=== PATIENT | female | born 1950 | race Caucasian/White ===

== ENCOUNTER 2021-08-10 12:11 | Inpatient (IN) | payer OTHER, MEDICARE ==
[2021-08-10] MEDS ORDERED: HEPARIN SODIUM 1,000 UN/ML (10ML VL) IV PRN (12:43)
[2021-08-10] MEDS: HEPARIN SOD,PORK IN 0.45% NACL 25,000 UNIT in 0.45% NACL 1 250ML.BAG IV SCH (13:05)
[2021-08-10] MEDS: DILTIAZEM 125 MG in SODIUM CHLORIDE 0.9% 100 ML IV SCH ×2 (13:07→21:03)
--- NOTE | 2021-08-10 13:08 | ED ---
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 fib RVR along with a pulmonary embolism in the right lung. She also did have a hypotensive episode hours she was treated and discharged in improved she was placed on IV Cardizem also IV heparin. She was transported here for further evaluation and treatment and higher level of care. She denied any fevers she had chills earlier in the week no overt cough or phlegm production. She did comment that there is was a spot found on her lung on the imaging done today. She states her last chemotherapy was 3 days ago to try to shrink the sarcoma. The plan was to have surgical removal if possible. Patient was noted to have hypokalemia and hypomagnesemia with elevated white blood cell count. No cough or phlegm production no dysuria no hematuria or modifying factors. MD Complaint: generalized weakness - Related Data Allergies Allergy/AdvReac Type Severity Reaction Status Date / Time No Known Allergies Allergy Verified 08/10/21 12:57 Review of Systems ROS Statement: Those systems with pertinent positive or pertinent negative responses have been documented in the HPI. ROS Other: All systems not noted in ROS Statement are negative. General Exam - General Exam Comments Initial Comments: Case was discussed with Dr. Tate from [facility]. Limitations: physical limitation Course Vital Signs 08/10/21 08/10/21 12:20 12:30 Temperature 98.0 F Pulse Rate 85 Pulse Rate [ 86 Bilateral Prone Radial] Respiratory 18 Rate Blood Pressure 104/62 O2 Sat by Pulse 96 Oximetry EKG Findings - EKG Results: EKG: interpreted by NINO, sinus rhythm (Sinus rhythm with PACs rate 87 GA interval 142 QRS 94 QT since QTC 398/478 minimal voltage criteria for LVH) Medical Decision Making - Medical Decision Making Patient will be admitted for evaluation inpatient. Disposition Clinical Impression: Pulmonary embolism, Rapid atrial fibrillation, Uterine sarcoma, Hypokalemia, Hypomagnesemia, Leukocytosis Disposition: ADMITTED IP TO THIS HOSP Condition: Fair Referrals: Nonstaff,Physician [Primary Care Provider] - 1-2 days
[2021-08-10] MEDS ORDERED: NALOXONE 0.4 MG/ML 1 ML VIAL IV PRN (13:29)
[2021-08-10] MEDS ORDERED: LORazepam 2 MG/ML INJ IV STA (13:35)
--- NOTE | 2021-08-10 15:18 | XR ---
EXAMINATION TYPE: XR chest 1V portable DATE OF EXAM: 08/10/2021 COMPARISON: 08/10/2021 INDICATION: Short of breath TECHNIQUE: Single frontal view of the chest is obtained. FINDINGS: The heart size is normal. The pulmonary vasculature is normal. The lungs are clear. Port is on the left with the tip in the distal superior vena cava right atrial junction. There is better inspiration on the current exam. IMPRESSION: 1. No acute pulmonary process.
--- NOTE | 2021-08-10 16:03 | P.CNPUL ---
History of Present Illness Consult date: 08/10/21 Requesting physician: Rogerio Case Reason for consult: dyspnea, pulmonary embolism, abnormal CXR/CT Chief complaint: Weakness, pulmonary embolism, new onset atrial fibrillation History of present illness: 71-year-old white female patient with history of uterine sarcoma who had chemotherapy 3 days ago, presented to [facility] in [place], [place], with complaints of weakness. She was found to be hypotensive, and in A. fib with RVR. CT chest was completed showng a pulmonary embolism in the right lung. She was started on heparin infusion, and Cardizem infusion for rate control. She denied any fever or chills earlier in the week, no complaints of cough or phlegm production. Patient was noted to have hypokalemia, and hypomagnesemia and elevated white blood cell count. No urinary complaints. Currently afebrile. She is on room air with a pulse ox of 94-96%. Currently she is in sinus mechanism with PACs. Cardiology consultation has been requested. We were consulted for a newly diagnosed pulmonary embolism Review of Systems All systems: negative Constitutional: Reports weakness, Denies chills, Denies fever Eyes: denies blurred vision, denies pain Ears, nose, mouth and throat: Denies headache, Denies sore throat Cardiovascular: Denies chest pain, Denies shortness of breath Respiratory: Denies cough Gastrointestinal: Denies abdominal pain, Denies diarrhea, Denies nausea, Denies vomiting Genitourinary: Denies dysuria, Denies hematuria Musculoskeletal: Denies myalgias Integumentary: Denies pruritus, Denies rash Neurological: Denies numbness, Denies weakness Psychiatric: Denies anxiety, Denies depression Endocrine: Denies fatigue, Denies weight change Medications and Allergies Home Medications Medication Instructions Recorded Confirmed Type Atenolol/Chlorthalidone 1 tab PO DAILY 08/10/21 08/10/21 History [Atenolol/Chlorthalidone 50-25] Potassium Chloride ER [K-Dur 20] 20 meq PO DAILY 08/10/21 08/10/21 History Prochlorperazine [Compazine] 10 mg PO Q6H PRN 08/10/21 08/10/21 History buPROPion [Wellbutrin] 75 mg PO HS 08/10/21 08/10/21 History ondansetron HCL [Zofran] 8 mg PO Q8H PRN 08/10/21 08/10/21 History Allergies Allergy/AdvReac Type Severity Reaction Status Date / Time No Known Allergies Allergy Verified 08/10/21 14:14 Physical Exam Vitals: Vital Signs Temp Pulse Pulse Resp BP Pulse Ox 08/10/21 12:30 86 08/10/21 12:20 98.0 F 85 18 104/62 96 Intake and Output 08/09/21 08/10/21 08/10/21 22:59 06:59 14:59 Other: Weight 97.976 kg GENERAL EXAM: Alert, very pleasant, 71-year-old female on room air with a pulse ox of 97% comfortable in no apparent distress. HEAD: Normocephalic/atraumatic. EYES: Normal reaction of pupils, equal size. Conjunctiva pink, sclera white. NOSE: Clear with pink turbinates. THROAT: No erythema or exudates. NECK: No masses, no JVD, no thyroid enlargement, no adenopathy. CHEST: No chest wall deformity. Symmetrical expansion. LUNGS: Equal air entry with no crackles, wheeze, rhonchi or dullness. CVS: Regular rate and rhythm, normal S1 and S2, no gallops, no murmurs, no rubs ABDOMEN: Soft, distended but nontender No hepatosplenomegaly, normal bowel sounds, no guarding or rigidity. EXTREMITIES: No clubbing, no edema, no cyanosis, 2+ pulses and upper and lower extremities. MUSCULOSKELETAL: Muscle strength and tone normal. SPINE: No scoliosis or deformity SKIN: No rashes CENTRAL NERVOUS SYSTEM: Alert and oriented -3. No focal deficits, tone is normal in all 4 extremities. PSYCHIATRIC: Alert and oriented -3. Appropriate affect. Intact judgment and insight. Results - Diagnostic Findings Chest x-ray: report reviewed, image reviewed CT scan - chest: report reviewed, image reviewed Additional studies: EKG reviewed Assessment and Plan Plan: Assessment: #1. New onset A. fib with RVR, likely related to acute pulmonary embolism. Currently in sinus mechanism. Remains on Cardizem and heparin infusions #2. Hypotension likely related to A. fib with RVR, currently improved #3. Acute small peripheral right lower lobe pulmonary embolism without findings for right heart strain, patient is currently on heparin infusion #4. 7 mm nodule in the posterior right lower lobe, possibly metastatic. Will need outpatient follow-up #5. Uterine cancer, on chemotherapy, and patient is awaiting surgical removal once the tumor shrinks. Patient was diagnosed in July 2020 #6. No prior history of DVT or PE #7. Leukocytosis, rule out possibility of infection #8. Hypokalemia, and hypomagnesemia being corrected per protocol #9. Osteoarthritis #10. Obesity with BMI of 39.5 kg/m #11. Hypertension #12. Anxiety #13. Never smoker Plan: Continue heparin infusion CTA chest from outside hospital has been reviewed, showing small peripheral right lower lobe pulmonary embolism Hemodynamically patient is stable, back in sinus mechanism, blood pressure has improved We'll obtain echocardiogram Cardiology consultation is pending We'll switch the patient over to oral anticoagulation tomorrow We'll send the procalcitonin level We'll obtain follow-up blood work tomorrow Send blood cultures We'll continue to follow I performed a history & physical examination of the patient and discussed their management with my nurse practitioner, Charlotte Paredes. I reviewed the nurse practitioner's note and agree with the documented findings and plan of care. Lung sounds are positive for diminished breath sounds. The findings and the impression was discussed with the patient. I attest to the documentation by the nurse practitioner. Time with Patient: Greater than 30
[2021-08-10] MEDS ORDERED: ONDANSETRON 4 MG TAB PO PRN (16:04)
[2021-08-10 16:08] LABS: Anisocytosis Slight; HGB 7.8 gm/dL (11.4-16.0); MCH 30.3 pg (25.0-35.0); MCHC 32.8 g/dL (31.0-37.0); MCV 92.5 fL (80.0-100.0); Mean Platelet Volume 7.8; Platelet Count 213 k/uL (150-450); RBC 2.59 m/uL (3.80-5.40); RDW 18.1 % (11.5-15.5); WBC 28.2 k/uL (3.8-10.6)
[2021-08-10 16:29] LABS: Eosinophils # (M) 0.28 k/uL (0-0.7); Lymphocytes # (M) 0.85 k/uL (1.0-4.8); Monocytes # (M) 0.28 k/uL (0-1.0); Neutrophils # (M) 26.79 k/uL (1.3-7.7); Neutrophils % (M) 95 %; Nucleated Red Blood Cells 0 /100 WBC (0-0); Ovalocytes Present; Total Cells Counted 100
[2021-08-10 16:42] LABS: ALT 21 U/L (4-34); AST 37 U/L (14-36); African American GFR (CKD) >90 (>60 ml/min/1.73 sqM); Albumin 3.1 g/dL (3.5-5.0); Alkaline Phosphatase 82 U/L (38-126); Anion Gap 7 mmol/L; Blood Urea Nitrogen 15 mg/dL (7-17); Carbon Dioxide 30 mmol/L (22-30); Chloride 96 mmol/L (98-107); Glucose 115 mg/dL (74-99); Non-African American GFR(CKD) >90 (>60 ml/min/1.73 sqM); Sodium 133 mmol/L (137-145); Total Bilirubin 1.5 mg/dL (0.2-1.3); Total Protein 5.6 g/dL (6.3-8.2)
[2021-08-10] MEDS: POTASSIUM CHLORIDE ER 20 MEQ TAB.ER PO SCH ×3 (17:22→20:43)
[2021-08-10] MEDS ORDERED: Potassium Replacement Protocol 1 EACH MISC MISCELLANE PRN (18:06)
[2021-08-10] MEDS ORDERED: ACETAMINOPHEN TAB 325 MG TAB PO PRN (18:06)
[2021-08-10] MEDS ORDERED: Magnesium Replacement Protocol 1 EACH MISC MISCELLANE PRN (18:06)
[2021-08-10 18:38] LABS: Appearance,Urine Cloudy (Clear); Bilirubin,Urine Negative (Negative); Blood,Urine Negative (Negative); Color,Urine Yellow; Glucose,Urine (UA) Negative (Negative); Ketones,Urine Negative (Negative); Leukocyte Esterase,Urine Trace (Negative); Mucus,Urine Rare /hpf; Nitrite,Urine Negative (Negative); Protein,Urine Trace (Negative); RBC,Urine 2 /hpf (0-5); Squamous Epithelial Cell,Urine 2 /hpf (0-4); WBC,Urine 3 /hpf (0-5)
[2021-08-10 18:41] LABS: Specific Gravity,Urine >1.050 (1.001-1.035)
[2021-08-10] MEDS ORDERED: PROCHLORPERAZINE 10 MG TAB PO PRN (18:58)
[2021-08-10] MEDS ORDERED: HYDROmorphone 0.5 MG/0.5 ML SYRINGE IVP PRN (19:00)
--- NOTE | 2021-08-10 20:06 | HP ---
HISTORY AND PHYSICAL CHIEF COMPLAINTS: Shortness of breath and pulmonary embolism and new atrial fibrillation. HISTORY OF PRESENT ILLNESS: This 71-year-old woman with a past medical history of multiple medical problems, including hypertension, history of uterine sarcoma, history of hysterectomy, history of DJD, being followed by a family physician in the [place] area, was not feeling well. The patient apparently was receiving chemotherapy and followup from [facility]. The patient was evaluated in [place], [place], and the patient was found to have atrial fibrillation with a rapid ventricular rate and pulmonary embolus on the right lung. Patient was transferred to [facility] [place] and admitted for further evaluation and treatment. Patient was started on IV heparin. Patient was also given Cardizem drip, which resulted in reversion of the cardiac rhythm into normal sinus rhythm. Patient is being closely monitored at this time. There is no history of any fever, rigor or chills. Dr. Huddleston's evaluation is progressing. A chest x-ray which was done in the ER showed some atelectasis and hyperinflation also. The lab showed white count elevated at 28.2, hemoglobin 7.8, sodium 133, potassium 3. There is no history of any fever, rigors or chills. PAST MEDICAL HISTORY: History of hypertension, history of uterine sarcoma. MEDICATIONS: Zofran, Wellbutrin, Compazine, K-Dur, atenolol, chlorthalidone. Doses are reviewed. ALLERGIES: NONE. FAMILY HISTORY: History of colon cancer. SOCIAL HISTORY: No history of smoking. No history of alcohol intake. REVIEW OF SYSTEMS: ENT: No diminished hearing. No diminished vision. CARDIOVASCULAR SYSTEM: No angina, palpitations. RESPIRATORY SYSTEM: As mentioned earlier. GI: As mentioned earlier. : As mentioned earlier. NERVOUS SYSTEM: No numbness. Generalized weakness. ALLERGY/IMMUNOLOGY: No asthma or hay fever. MUSCULOSKELETAL: As mentioned earlier. HEMATOLOGY/ONCOLOGY: No history of anemia. ENDOCRINE: No history of diabetes, hypothyroidism. CONSTITUTIONAL: As mentioned earlier. DERMATOLOGY: Negative. RHEUMATOLOGY: Negative. PSYCHIATRY: As mentioned earlier. PHYSICAL EXAMINATION: Patient is alert, oriented x3. Pulse is 79, blood pressure 119/79, respiration 18, temperature 98 degrees, pulse ox 94% on room air, HEENT: Conjunctivae normal. Oral mucosa moist. NECK: No jugular venous distention. No carotid bruit. No lymph node enlargement. CARDIOVASCULAR: S1, S2 irregular. No S3. No S4 RESPIRATION: Breath sounds diminished at the bases. Bilateral scattered rhonchi and crackles. ABDOMEN: Soft. Mild diffuse distention present. Umbilical hernia also present. Nontender. No ascites. Bowel sounds diminished. LEGS: No edema. No swelling. NERVOUS SYSTEM: Higher functions as mentioned earlier. Moves all 4 limbs. No focal motor or sensory deficit. LYMPHATICS: No lymph node palpable in neck, axillae or groin. SKIN: No ulcer, rash, bleeding. JOINTS: No active deforming arthropathy. LABS: WBC 28.2, hemoglobin 7.8, sodium 133, potassium 3. ASSESSMENT: 1. Shortness of breath, multifactorial, with acute pulmonary embolism, right-sided, mostly peripheral. 2. Atrial fibrillation with a fast ventricular rate. 3. Rule out pneumonia or atelectasis. 4. Increased white count. 5. Anemia, normocytic. 6. Hyponatremia. 7. Hypokalemia. 8. Elevated bilirubin. 9. Mild hypocalcemia. 10.Hypertension. 11.Uterine sarcoma in July 2020. 12.History of hysterectomy. 13.History of port placement. 14.History of bilateral knee replacement. 15.History of anxiety. RECOMMENDATIONS AND DISCUSSION: In this 71-year-old woman who presented with multiple complex medical issues, at this time we will monitor the patient closely, continue the current medications, continue with symptomatic treatment. I would also recommend optimizing the bronchodilator treatment. Continue with IV heparin and also Cardizem drip. Follow up with Cardiology and Pulmonology. The patient is immunosuppressed. I would recommend a serum procalcitonin. If it is elevated, I would also recommend a course of antibiotics as well. Obtain blood cultures. Repeat labs. Prognosis is guarded because of multiple complex medical issues. Further recommendations to follow. See orders for further details. MMODL / IJN: [id number] /
[2021-08-10] MEDS: buPROPion 75 MG TAB PO SCH (20:43)
[2021-08-10] MEDS: PANTOPRAZOLE 40 MG/10 ML VIAL IVP SCH (21:04)
[2021-08-11] MEDS: HYDROcodone/APAP 5-325MG 1 EACH TAB PO PRN ×2 (00:23→20:21)
[2021-08-11] MEDS: DILTIAZEM 125 MG in SODIUM CHLORIDE 0.9% 100 ML IV SCH (06:39)
[2021-08-11] MEDS: HEPARIN SOD,PORK IN 0.45% NACL 25,000 UNIT in 0.45% NACL 1 250ML.BAG IV SCH (06:44)
[2021-08-11] MEDS: POTASSIUM CHLORIDE ER 20 MEQ TAB.ER PO SCH (07:52)
[2021-08-11] MEDS: PANTOPRAZOLE 40 MG/10 ML VIAL IVP SCH ×2 (07:52→20:22)
[2021-08-11] MEDS: atenoloL 50 MG TAB PO SCH (07:52)
[2021-08-11] MEDS: CHLORTHALIDONE 25 MG TAB PO SCH (07:53)
[2021-08-11 09:22] LABS: Anisocytosis Slight; Basophils % (A) 0 %; Eosinophils # (A) 0.1 k/uL (0-0.7); Eosinophils % (A) 0 %; HCT 22.5 % (34.0-46.0); HGB 7.4 gm/dL (11.4-16.0); Lymphocytes # (A) 0.3 k/uL (1.0-4.8); Lymphocytes % (A) 2 %; MCH 30.7 pg (25.0-35.0); MCV 92.9 fL (80.0-100.0); Macrocytosis Slight; Mean Platelet Volume 7.9; Monocytes # (A) 0.4 k/uL (0-1.0); Monocytes % (A) 3 %; Neutrophils # (A) 11.8 k/uL (1.3-7.7); Neutrophils % (A) 94 %; Platelet Count 168 k/uL (150-450); RBC 2.42 m/uL (3.80-5.40); RDW 18.4 % (11.5-15.5); WBC 12.6 k/uL (3.8-10.6)
[2021-08-11 09:46] LABS: Prothrombin Time 10.5 sec (9.0-12.0)
[2021-08-11 10:03] LABS: ALT 20 U/L (4-34); AST 34 U/L (14-36); African American GFR (CKD) >90 (>60 ml/min/1.73 sqM); Albumin 2.9 g/dL (3.5-5.0); Alkaline Phosphatase 106 U/L (38-126); Anion Gap 5 mmol/L; Blood Urea Nitrogen 14 mg/dL (7-17); Calcium 7.8 mg/dL (8.4-10.2); Carbon Dioxide 29 mmol/L (22-30); Chloride 97 mmol/L (98-107); Glucose 129 mg/dL (74-99); Magnesium 1.6 mg/dL (1.6-2.3); Non-African American GFR(CKD) >90 (>60 ml/min/1.73 sqM); Potassium 3.4 mmol/L (3.5-5.1); Sodium 131 mmol/L (137-145); Total Bilirubin 1.2 mg/dL (0.2-1.3); Total Protein 5.5 g/dL (6.3-8.2)
[2021-08-11 10:24] LABS: C Reactive Protein 14.9 mg/dL (<1.0)
--- NOTE | 2021-08-11 11:24 | P.PN ---
Subjective Progress Note Date: 08/11/21 Principal diagnosis: Pulmonary embolism 71-year-old white female patient with history of uterine sarcoma who had chemotherapy 3 days ago, presented to [facility] in [place], [place], with complaints of weakness. She was found to be hypotensive, and in A. fib with RVR. CT chest was completed showng a pulmonary embolism in the right lung. She was started on heparin infusion, and Cardizem infusion for rate control. She denied any fever or chills earlier in the week, no complaints of cough or phlegm production. Patient was noted to have hypokalemia, and hypomagnesemia and elevated white blood cell count. No urinary complaints. Currently afebrile. She is on room air with a pulse ox of 94-96%. Currently she is in sinus mechanism with PACs. Cardiology consultation has been requested. We were consulted for a newly diagnosed pulmonary embolism On 08/11/2021 patient seen in follow-up on selective care unit, she is currently up in the recliner, breathing comfortably, she is on room air, with a pulse ox of 95%, vitall signs have been stable, she is back in sinus mechanism, the rate is controlled, she remains a Cardizem infusion at 15 mg per hour, she is on heparin infusion, and 0.9 normal saline at a rate of 20 ML per hour, no complaints of chest pain, 7 stable overnight, no fever or chills, pro-calcitonin level was negative at 0.20, urinalysis did not show evidence of infection, 2 sets of cardiac troponins were less than 0.012, patient continues on Rocephin. White blood cell count is improved and is down to 12.6, hemoglobin is 7.4. Sodium is 131, potassium is 3.4, chloride is 97, B1 is 14 creatinine 0.46. No nausea or vomiting, no abdominal pain. Altered mentation, no fever or chills, no cough production. Objective - Vital Signs Vital signs: Vital Signs Temp 97.4 F L 08/11/21 07:47 Pulse 101 H 08/11/21 08:00 Resp 18 08/11/21 08:00 BP 107/63 08/11/21 07:47 Pulse Ox 95 08/11/21 07:47 Intake & Output 08/10/21 08/11/21 08/11/21 18:59 06:59 18:59 Intake Total 25 494 Output Total 400 Balance -375 494 Weight 97.976 kg 99.7 kg Intake: Intake, IV Titration 494 Amount Diltiazem 125 mg In 244 Sodium Chloride 0.9% 100 ml @ 15 MG/HR 15 mls/hr IV .[id number] MICHAEL Rx#: [id number] Heparin Sod,Pork in 0.45% 250 NaCl 25,000 unit In 0.45 % NaCl 1 250ml.bag @ 18 UNITS/KG/HR 17.636 mls/hr IV .[id number] MICHAEL Rx#: [id number] Oral 25 Output: Urine 400 - Exam GENERAL EXAM: Alert, very pleasant, 71-year-old female on room air with a pulse ox of 97% comfortable in no apparent distress. HEAD: Normocephalic/atraumatic. EYES: Normal reaction of pupils, equal size. Conjunctiva pink, sclera white. NOSE: Clear with pink turbinates. THROAT: No erythema or exudates. NECK: No masses, no JVD, no thyroid enlargement, no adenopathy. CHEST: No chest wall deformity. Symmetrical expansion. LUNGS: Equal air entry with no crackles, wheeze, rhonchi or dullness. CVS: Regular rate and rhythm, normal S1 and S2, no gallops, no murmurs, no rubs ABDOMEN: Soft, distended but nontender No hepatosplenomegaly, normal bowel sounds, no guarding or rigidity. EXTREMITIES: No clubbing, no edema, no cyanosis, 2+ pulses and upper and lower extremities. MUSCULOSKELETAL: Muscle strength and tone normal. SPINE: No scoliosis or deformity SKIN: No rashes CENTRAL NERVOUS SYSTEM: Alert and oriented -3. No focal deficits, tone is normal in all 4 extremities. PSYCHIATRIC: Alert and oriented -3. Appropriate affect. Intact judgment and insight. - Labs CBC & Chem 7: 08/11/21 08:54 08/11/21 08:54 Labs: Abnormal Lab Results - Last 24 Hours (Table) 08/10/21 08/10/21 08/10/21 Range/Units 14:54 14:54 15:43 WBC 28.2 H (3.8-10.6) k/uL RBC 2.59 L (3.80-5.40) m/uL Hgb 7.8 L (11.4-16.0) gm/dL Hct 24.0 L (34.0-46.0) % RDW 18.1 H (11.5-15.5) % Neutrophils # (1.3-7.7) k/uL Neutrophils # (Manual) 26.79 H (1.3-7.7) k/uL Lymphocytes # (1.0-4.8) k/uL Lymphocytes # (Manual) 0.85 L (1.0-4.8) k/uL APTT (22.0-30.0) sec D-Dimer (<0.60) mg/L FEU Sodium 133 L (137-145) mmol/L Potassium 3.0 L (3.5-5.1) mmol/L Chloride 96 L (98-107) mmol/L Creatinine 0.51 L (0.52-1.04) mg/dL Glucose 115 H (74-99) mg/dL Calcium 8.0 L (8.4-10.2) mg/dL Total Bilirubin 1.5 H (0.2-1.3) mg/dL AST 37 H (14-36) U/L C-Reactive Protein (<1.0) mg/dL Total Protein 5.6 L (6.3-8.2) g/dL Albumin 3.1 L (3.5-5.0) g/dL Procalcitonin 0.20 H (0.02-0.09) ng/mL Urine Appearance (Clear) Ur Specific [place] (1.001-1.035) Urine Protein (Negative) Ur Leukocyte Esterase (Negative) Urine Mucus (None) /hpf 08/10/21 08/10/21 08/11/21 Range/Units 18:20 19:54 08:54 WBC (3.8-10.6) k/uL RBC (3.80-5.40) m/uL Hgb (11.4-16.0) gm/dL Hct (34.0-46.0) % RDW (11.5-15.5) % Neutrophils # (1.3-7.7) k/uL Neutrophils # (Manual) (1.3-7.7) k/uL Lymphocytes # (1.0-4.8) k/uL Lymphocytes # (Manual) (1.0-4.8) k/uL APTT 50.0 H (22.0-30.0) sec D-Dimer (<0.60) mg/L FEU Sodium 131 L (137-145) mmol/L Potassium 3.4 L (3.5-5.1) mmol/L Chloride 97 L (98-107) mmol/L Creatinine 0.46 L (0.52-1.04) mg/dL Glucose 129 H (74-99) mg/dL Calcium 7.8 L (8.4-10.2) mg/dL Total Bilirubin (0.2-1.3) mg/dL AST (14-36) U/L C-Reactive Protein 14.9 H (<1.0) mg/dL Total Protein 5.5 L (6.3-8.2) g/dL Albumin 2.9 L (3.5-5.0) g/dL Procalcitonin (0.02-0.09) ng/mL Urine Appearance Cloudy H (Clear) Ur Specific [place] >1.050 H (1.001-1.035) Urine Protein Trace H (Negative) Ur Leukocyte Esterase Trace H (Negative) Urine Mucus Rare H (None) /hpf 08/11/21 08/11/21 Range/Units 08:54 08:54 WBC 12.6 H (3.8-10.6) k/uL RBC 2.42 L (3.80-5.40) m/uL Hgb 7.4 L (11.4-16.0) gm/dL Hct 22.5 L (34.0-46.0) % RDW 18.4 H (11.5-15.5) % Neutrophils # 11.8 H (1.3-7.7) k/uL Neutrophils # (Manual) (1.3-7.7) k/uL Lymphocytes # 0.3 L (1.0-4.8) k/uL Lymphocytes # (Manual) (1.0-4.8) k/uL APTT (22.0-30.0) sec D-Dimer 1.63 H (<0.60) mg/L FEU Sodium (137-145) mmol/L Potassium (3.5-5.1) mmol/L Chloride (98-107) mmol/L Creatinine (0.52-1.04) mg/dL Glucose (74-99) mg/dL Calcium (8.4-10.2) mg/dL Total Bilirubin (0.2-1.3) mg/dL AST (14-36) U/L C-Reactive Protein (<1.0) mg/dL Total Protein (6.3-8.2) g/dL Albumin (3.5-5.0) g/dL Procalcitonin (0.02-0.09) ng/mL Urine Appearance (Clear) Ur Specific [place] (1.001-1.035) Urine Protein (Negative) Ur Leukocyte Esterase (Negative) Urine Mucus (None) /hpf Assessment and Plan Plan: Assessment: #1. New onset A. fib with RVR, likely related to acute pulmonary embolism. Currently in sinus mechanism. Remains on Cardizem and heparin infusions #2. Hypotension likely related to A. fib with RVR, currently improved #3. Acute small peripheral right lower lobe pulmonary embolism without findings for right heart strain, patient is currently on heparin infusion #4. 7 mm nodule in the posterior right lower lobe, possibly metastatic. Will need outpatient follow-up #5. Uterine cancer, on chemotherapy, and patient is awaiting surgical removal once the tumor shrinks. Patient was diagnosed in July 2020 #6. No prior history of DVT or PE #7. Leukocytosis, rule out possibility of infection #8. Hypokalemia, and hypomagnesemia being corrected per protocol #9. Osteoarthritis #10. Obesity with BMI of 39.5 kg/m #11. Hypertension #12. Anxiety #13. Never smoker Plan: Discontinue heparin infusion We'll start Eliquis 10 mg twice daily Hemodynamically stable, back in sinus mechanism, rate is controlled Today's blood work has been reviewed, leukocytosis is improving, pro-calcitonin is essentially negative No fever or chills, vital signs have been stable If continues to be stable, and cleared by cardiology she maybe considered for discharge home in the next 24 hours. We'll continue to follow I performed a history & physical examination of the patient and discussed their management with my nurse practitioner, Charlotte Paredes. I reviewed the nurse practitioner's note and agree with the documented findings and plan of care. Lung sounds are positive for diminished breath sounds. The findings and the impression was discussed with the patient. I attest to the documentation by the nurse practitioner. Time with Patient: Less than 30
[2021-08-11] MEDS ORDERED: APIXABAN 5 MG TAB PO ONE ×2 (13:00→13:04)
[2021-08-11 13:16] LABS: Erythrocyte Sedimentation Rate 68 mm/hr (0-20)
--- NOTE | 2021-08-11 13:17 | P.CRDCN ---
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 She received chemotherapy on Friday and then was told she had severe anemia requiring transfusion on Friday. Unfortunately over the last 2-3 days she has been not icing feeling generalized fatigue, dyspnea on exertion and therefore presented to [facility]. She was diagnosed with a new pulmonary embolism as well as new onset atrial fibrillation. She cannot feel her heart racing and was placed on a Cardizem drip and then converted to normal sinus rhythm. She denies any hematochezia or melena and her anemia appears related to chemotherapy. She was found to have increased white blood cell count and unclear if she was given any GSF after chemotherapy. She believes it has been a few years since any echocardiogram was performed. She does have new onset of lower extremity edema with 2+ pitting edema as well as orthopnea which is new or the past 1-2 weeks. She is unsure what chemotherapy she is getting. EKG on presentation shows normal sinus rhythm, left axis deviation, mild nonspecific ST depressions in the lateral leads. Upon further review of initial EKG from [facility] it appears she had SVT with regular rhythm at 174 bpm and occasional R PAC. The remainder of telemetry and continue to show a regular SVT with heart rates 170- 180 with occasional PACs. No consistent atrial fibrillation or irregular rhythms noted. REVIEW OF SYSTEMS At the time of my exam: CONSTITUTIONAL: Denies fever or chills. CARDIOVASCULAR: Denies chest pain, +shortness of breath, +orthopnea, no PND or palpitations. RESPIRATORY: Denies cough. GASTROINTESTINAL: Denies abdominal pain, diarrhea, constipation, nausea or vomiting. MUSCULOSKELETAL: Denies myalgias. NEUROLOGIC: Denies numbness, tingling or weakness. ENDOCRINE: Denies fatigue, weight change, polydipsia or polyurina. GENITOURINARY: Denies burning, hematuria or urgency with micturation. HEMATOLOGIC: Denies history of anemia or bleeding. PHYSICAL EXAMINATION Vital signs reviewed. CONSTITUTIONAL: No apparent distress, obese, chronically ill appearing HEENT: Head is normocephalic. Pupils are equal, round. Sclerae anicteric. Mucous membranes of the mouth are moist. No JVD. No carotid bruit. CHEST EXAMINATION: Lungs are clear to auscultation. No chest wall tenderness is noted on palpation or with deep breathing. HEART EXAMINATION: Regular rate and rhythm. S1, S2 heard. No murmurs, gallops or rub. ABDOMEN: Soft, nontender. Positive bowel sounds. EXTREMITIES: 2+ peripheral pulses, 2+ lower extremity edema and no calf tenderness. NEUROLOGIC EXAMINATION: Patient is awake, alert and oriented x3. ASSESSMENT 1. Acute on chronic heart failure, unclear if systolic or diastolic 2. SVT on presentation, reviewed EKG and telemetry from [facility]. No obvious atrial fibrillation noted. Rhythms appear regular and most consistent with SVT with heart rates of 170 to 180. 3. Anemia status post recent blood transfusion likely related to chemotherapy 4. Leukocytosis likely related to GSF given after chemo 5. Pulmonary embolism by CAT scan 6. Uterine cancer undergoing chemotherapy, plans for future resection 7. Hypertension PLAN Patient's main presentation was of fatigue and dyspnea. Likely some component of anemia however also appears to be overloaded with 2+ lower extremity edema and mild crackles with orthopnea. We will check a proBNP as well as echocardiogram. Start Lasix and monitor ins and outs, kidney function and clinical response. EKG and telemetry reviewed with only SVT noted which was regular and occasional PACs, no clear evidence of atrial fibrillation. Would continue anticoagulation for DVT however monitor for any evidence of A. fib. Continue with atenolol at this time and may consider increasing if further episodes of SVT however primary care physician just recently decreased to half pill a week and a half ago secondary to borderline hypotension. 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 History of Any Multi-Drug Resistant Organisms: None Reported Past Surgical History: Hysterectomy, Orthopedic Surgery Additional Past Surgical History / Comment(s): August 2020 complete hysterectomy & port placement, 2015 bilat knee replacement Past Anesthesia/Blood Transfusion Reactions: No Reported Reaction Smoking Status: Never smoker - Past Family History Mother History Unknown: Yes Family Medical History: Cancer Additional Family Medical History / Comment(s): Colon CA Sister(s) History Unknown: Yes Family Medical History: Cancer Additional Family Medical History / Comment(s): Older sister had breast CA Medications and Allergies Home Medications Medication Instructions Recorded Confirmed Type Atenolol/Chlorthalidone 1 tab PO DAILY 08/10/21 08/10/21 History [Atenolol/Chlorthalidone 50-25] Potassium Chloride ER [K-Dur 20] 20 meq PO DAILY 08/10/21 08/10/21 History Prochlorperazine [Compazine] 10 mg PO Q6H PRN 08/10/21 08/10/21 History buPROPion [Wellbutrin] 75 mg PO HS 08/10/21 08/10/21 History ondansetron HCL [Zofran] 8 mg PO Q8H PRN 08/10/21 08/10/21 History Allergies Allergy/AdvReac Type Severity Reaction Status Date / Time No Known Allergies Allergy Verified 08/10/21 14:14 Physical Exam Vitals: Vital Signs Temp Pulse Pulse Resp BP BP Pulse Ox 08/11/21 11:24 97.5 F L 76 18 103/64 96 08/11/21 08:00 101 H 18 08/11/21 07:47 97.4 F L 101 H 18 107/63 95 08/11/21 03:48 98 F 85 18 99/52 95 08/10/21 23:27 99 F 90 20 111/70 94 L 08/10/21 20:00 99.2 F 92 18 111/67 93 L 08/10/21 17:21 98 18 118/72 95 08/10/21 15:30 98.5 F 90 18 123/73 97 08/10/21 14:00 79 18 119/79 94 L Intake and Output 08/10/21 08/11/21 08/11/21 22:59 06:59 14:59 Intake Total 144 375 Output Total 400 Balance -256 375 Intake: Intake, IV Titration 119 375 Amount Diltiazem 125 mg In 119 125 Sodium Chloride 0.9% 100 ml @ 15 MG/HR 15 mls/hr IV .Q8H20M [facility] Rx#: [id number] Heparin Sod,Pork in 0.45% 250 NaCl 25,000 unit In 0.45 % NaCl 1 250ml.bag @ 18 UNITS/KG/HR 17.636 mls/hr IV .[id number] [facility] Rx#: [id number] Oral 25 Output: Urine 400 Other: Weight 97.976 kg 99.7 kg Results 09/18/21 08:54 08/11/21 08:54 Cardiac Enzymes 08/10/21 08/10/21 08/10/21 Range/Units 14:54 15:43 19:54 AST 37 H (14-36) U/L Troponin I <0.012 <0.012 (0.000-0.034) ng/mL 08/11/21 Range/Units 08:54 AST 34 (14-36) U/L Troponin I (0.000-0.034) ng/mL Coagulation 08/10/21 08/11/21 Range/Units 19:54 08:54 PT 10.5 (9.0-12.0) sec APTT 50.0 H (22.0-30.0) sec CBC 08/10/21 08/11/21 Range/Units 14:54 08:54 WBC 28.2 H 12.6 H (3.8-10.6) k/uL RBC 2.59 L 2.42 L (3.80-5.40) m/uL Hgb 7.8 L 7.4 L (11.4-16.0) gm/dL Hct 24.0 L 22.5 L (34.0-46.0) % Plt Count 213 168 (150-450) k/uL Comprehensive Metabolic Panel 08/10/21 08/11/21 Range/Units 15:43 08:54 Sodium 133 L 131 L (137-145) mmol/L Potassium 3.0 L 3.4 L (3.5-5.1) mmol/L Chloride 96 L 97 L (98-107) mmol/L Carbon Dioxide 30 29 (22-30) mmol/L BUN 15 14 (7-17) mg/dL Creatinine 0.51 L 0.46 L (0.52-1.04) mg/dL Glucose 115 H 129 H (74-99) mg/dL Calcium 8.0 L 7.8 L (8.4-10.2) mg/dL AST 37 H 34 (14-36) U/L ALT 21 20 (4-34) U/L Alkaline Phosphatase 82 106 (38-126) U/L Total Protein 5.6 L 5.5 L (6.3-8.2) g/dL Albumin 3.1 L 2.9 L (3.5-5.0) g/dL Current Medications Generic Name Dose Route Start Last Admin Trade Name Freq PRN Reason Stop Dose Admin Acetaminophen 650 mg 08/10/21 18:06 08/10/21 18:35 Acetaminophen Tab 325 Mg Tab PO 650 mg Q6HR PRN Administration Fever and/ or Pain Hydrocodone Bitart/Acetaminophen 1 each 08/10/21 19:00 08/11/21 00:23 Hydrocodone/Apap 5-325mg 1 Each Tab PO 1 each Q6HR PRN Administration Pain Apixaban 10 mg 08/11/21 21:00 Apixaban 5 Mg Tab PO 08/17/21 12:35 BID MICHAEL Protocol Apixaban 5 mg 08/19/21 09:00 Apixaban 5 Mg Tab PO BID MICHAEL Protocol Atenolol 50 mg 08/11/21 09:00 08/11/21 07:52 Atenolol 50 Mg Tab PO 50 mg DAILY MICHAEL Administration Bupropion HCl 75 mg 08/10/21 21:00 08/10/21 20:43 Bupropion 75 Mg Tab PO 75 mg HS MICHAEL Administration Chlorthalidone 25 mg 08/11/21 09:00 08/11/21 07:53 Chlorthalidone 25 Mg Tab PO 25 mg DAILY MICHAEL Administration Hydromorphone HCl 0.5 mg 08/10/21 19:00 Hydromorphone 0.5 Mg/0.5 Ml Syringe IVP Q6HR PRN Severe Pain Ceftriaxone Sodium 1 gm/ 50 mls @ 100 mls/hr 08/10/21 19:15 08/11/21 07:52 Sodium Chloride IVPB 100 mls/hr Q24HR MICHAEL Administration Miscellaneous Information 1 each 08/10/21 18:06 Magnesium Replacement Protocol 1 Each Misc MISCELLANE DAILY PRN Per Protocol Protocol Miscellaneous Information 1 each 08/10/21 18:06 Potassium Replacement Protocol 1 Each Misc MISCELLANE DAILY PRN Per Protocol Protocol Naloxone HCl 0.2 mg 08/10/21 13:29 Naloxone 0.4 Mg/Ml 1 Ml Vial IV Q2M PRN Opioid Reversal Ondansetron HCl 8 mg 08/10/21 16:04 Ondansetron 4 Mg Tab PO Q8H PRN SEVERE NAUSEA Pantoprazole Sodium 40 mg 08/10/21 21:00 08/11/21 07:52 Pantoprazole 40 Mg/10 Ml Vial IVP 40 mg BID MICHAEL Administration Potassium Chloride 20 meq 08/10/21 16:15 08/11/21 07:52 Potassium Chloride Er 20 Meq Tab.Er PO 20 meq DAILY MICHAEL Administration Prochlorperazine Maleate 10 mg 08/10/21 18:58 Prochlorperazine 10 Mg Tab PO Q6H PRN Mild Nausea and/or Anxiety Intake and Output 08/10/21 08/11/21 08/11/21 22:59 06:59 14:59 Intake Total 144 375 Output Total 400 Balance -256 375 Intake: Intake, IV Titration 119 375 Amount Diltiazem 125 mg In 119 125 Sodium Chloride 0.9% 100 ml @ 15 MG/HR 15 mls/hr IV .Q8H20M [facility] Rx#: [id number] Heparin Sod,Pork in 0.45% 250 NaCl 25,000 unit In 0.45 % NaCl 1 250ml.bag @ 18 UNITS/KG/HR 17.636 mls/hr IV .[id number] [facility] Rx#: [id number] Oral 25 Output: Urine 400 Other: Weight 97.976 kg 99.7 kg 08/11/21 08:54 08/11/21 08:54
[2021-08-11] MEDS ORDERED: FUROSEMIDE 10 MG/ML 2 ML VIAL ONE (13:20)
[2021-08-11] MEDS: FUROSEMIDE 10 MG/ML 2 ML VIAL IV SCH (13:21)
--- NOTE | 2021-08-11 17:10 | P.CONS ---
History of Present Illness - Reason for Consult Consult date: 08/11/21 On chemotherapy Uterine Sarcoma and new PE Requesting physician: Hossein Vargas - Chief Complaint SOB - History of Present Illness Mrs. Hernandez is a very pleasant female patient under the care of Dr. Chung for treatment of her Uterine sarcoma. She is status post cycle 3 of chemotherapy and growth factor last week. She presented to hospital in [facility] with Shortness of breath and transferred to [facility] after finding Pulmonary emboli and Atrial Fib. She states she feels anxious and nauseated, otherwisw she is ok. She is hoping the cancer has shrunk enough to undergo resection in [place] in a few weeks. 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 History of Any Multi-Drug Resistant Organisms: None Reported Past Surgical History: Hysterectomy, Orthopedic Surgery Additional Past Surgical History / Comment(s): August 2020 complete hysterectomy & port placement, 2014 bilat knee replacement Past Anesthesia/Blood Transfusion Reactions: No Reported Reaction Smoking Status: Never smoker - Past Family History Mother History Unknown: Yes Family Medical History: Cancer Additional Family Medical History / Comment(s): Colon CA Sister(s) History Unknown: Yes Family Medical History: Cancer Additional Family Medical History / Comment(s): Older sister had breast CA Medications and Allergies Home Medications Medication Instructions Recorded Confirmed Type Atenolol/Chlorthalidone 1 tab PO DAILY 08/10/21 08/10/21 History [Atenolol/Chlorthalidone 50-25] Potassium Chloride ER [K-Dur 20] 20 meq PO DAILY 08/10/21 08/10/21 History Prochlorperazine [Compazine] 10 mg PO Q6H PRN 08/10/21 08/10/21 History buPROPion [Wellbutrin] 75 mg PO HS 08/10/21 08/10/21 History ondansetron HCL [Zofran] 8 mg PO Q8H PRN 08/10/21 08/10/21 History Allergies Allergy/AdvReac Type Severity Reaction Status Date / Time No Known Allergies Allergy Verified 08/10/21 14:14 Physical Exam Vitals: Vital Signs Temp Pulse Resp BP Pulse Ox 08/11/21 16:00 97.8 F 77 18 107/54 99 08/11/21 13:32 76 18 08/11/21 11:24 97.5 F L 76 18 103/64 96 08/11/21 08:00 101 H 18 08/11/21 07:47 97.4 F L 101 H 18 107/63 95 08/11/21 03:48 98 F 85 18 99/52 95 08/10/21 23:27 99 F 90 20 111/70 94 L 08/10/21 20:00 99.2 F 92 18 111/67 93 L 08/10/21 17:21 98 18 118/72 95 Intake and Output 08/11/21 08/11/21 08/11/21 06:59 14:59 22:59 Intake Total 375 Balance 375 Intake: Intake, IV Titration 375 Amount Diltiazem 125 mg In 125 Sodium Chloride 0.9% 100 ml @ 15 MG/HR 15 mls/hr IV .Q8H20M [facility] Rx#: [id number] Heparin Sod,Pork in 0.45% 250 NaCl 25,000 unit In 0.45 % NaCl 1 250ml.bag @ 18 UNITS/KG/HR 17.636 mls/hr IV .[id number] [facility] Rx#: [id number] Other: Weight 99.7 kg 99.7 kg Telemedicine, Discussed with Nursing, Review Vitals. Patient is alert, a little SOB in talking on phone. Results CBC & Chem 7: 08/11/21 08:54 08/11/21 08:54 Labs: Abnormal Lab Results - Last 24 Hours (Table) 08/10/21 08/10/21 08/10/21 Range/Units 14:54 18:20 19:54 WBC (3.8-10.6) k/uL RBC (3.80-5.40) m/uL Hgb (11.4-16.0) gm/dL Hct (34.0-46.0) % RDW (11.5-15.5) % Neutrophils # (1.3-7.7) k/uL Lymphocytes # (1.0-4.8) k/uL ESR (0-20) mm/hr APTT 50.0 H (22.0-30.0) sec D-Dimer (<0.60) mg/L FEU Sodium (137-145) mmol/L Potassium (3.5-5.1) mmol/L Chloride (98-107) mmol/L Creatinine (0.52-1.04) mg/dL Glucose (74-99) mg/dL Calcium (8.4-10.2) mg/dL C-Reactive Protein (<1.0) mg/dL Total Protein (6.3-8.2) g/dL Albumin (3.5-5.0) g/dL Procalcitonin 0.20 H (0.02-0.09) ng/mL Urine Appearance Cloudy H (Clear) Ur Specific [place] >1.050 H (1.001-1.035) Urine Protein Trace H (Negative) Ur Leukocyte Esterase Trace H (Negative) Urine Mucus Rare H (None) /hpf 08/11/21 08/11/21 08/11/21 Range/Units 08:54 08:54 08:54 WBC 12.6 H (3.8-10.6) k/uL RBC 2.42 L (3.80-5.40) m/uL Hgb 7.4 L (11.4-16.0) gm/dL Hct 22.5 L (34.0-46.0) % RDW 18.4 H (11.5-15.5) % Neutrophils # 11.8 H (1.3-7.7) k/uL Lymphocytes # 0.3 L (1.0-4.8) k/uL ESR 68 H (0-20) mm/hr APTT (22.0-30.0) sec D-Dimer 1.63 H (<0.60) mg/L FEU Sodium 131 L (137-145) mmol/L Potassium 3.4 L (3.5-5.1) mmol/L Chloride 97 L (98-107) mmol/L Creatinine 0.46 L (0.52-1.04) mg/dL Glucose 129 H (74-99) mg/dL Calcium 7.8 L (8.4-10.2) mg/dL C-Reactive Protein 14.9 H (<1.0) mg/dL Total Protein 5.5 L (6.3-8.2) g/dL Albumin 2.9 L (3.5-5.0) g/dL Procalcitonin (0.02-0.09) ng/mL Urine Appearance (Clear) Ur Specific [place] (1.001-1.035) Urine Protein (Negative) Ur Leukocyte Esterase (Negative) Urine Mucus (None) /hpf Chest x-ray: report reviewed Assessment and Plan (1) Normocytic anemia Current Visit: Yes Status: Acute Code(s): D64.9 - ANEMIA, UNSPECIFIED SNOMED Code(s): 033398309 (2) Leukocytosis Current Visit: Yes Status: Acute Code(s): D72.829 - ELEVATED WHITE BLOOD CELL COUNT, UNSPECIFIED SNOMED Code(s): 378134610 (3) Pulmonary embolism Current Visit: Yes Status: Acute Code(s): I26.99 - OTHER PULMONARY EMBOLISM WITHOUT ACUTE COR PULMONALE SNOMED Code(s): 90025962 (4) Rapid atrial fibrillation Current Visit: Yes Status: Acute Code(s): I48.91 - UNSPECIFIED ATRIAL FIBRILLATION SNOMED Code(s): 138016618 (5) Uterine sarcoma Current Visit: Yes Status: Acute Code(s): C54.9 - MALIGNANT NEOPLASM OF CORPUS UTERI, UNSPECIFIED SNOMED Code(s): 967227561 Plan: Ativan PRN anxiety and Nausea - Discussed with patient Leukocytosis likely from Neulasta Anemia likely secondary to chemotherapy Monitor CBC and transfuse if less than 7 Agree with Eliquis, discussed with patient If Lower extremity doppler not performed rec for baseline.
[2021-08-11] MEDS: LORazepam 2 MG/ML INJ IV PRN (17:44)
--- NOTE | 2021-08-11 19:57 | PN ---
PROGRESS NOTE DATE OF SERVICE: 08/11/2021 This 71-year-old woman was admitted with pulmonary embolism as well as atrial fibrillation is being closely monitored. No chest pain. No palpitations. No fever. The patient is also on chemotherapy for uterine sarcoma from elsewhere. PHYSICAL EXAMINATION: Alert and oriented times three. Pulse 77, blood pressure 107/54, respiration 18, temperature 97.8, pulse ox 99 percent on room air. HEENT: Conjunctivae normal. NECK: No JVD. CARDIOVASCULAR: S1, S2 muffled. RESPIRATION: Breath sounds diminished in the bases. Scattered rhonchi. ABDOMEN: Soft. Diffuse distention. LEGS are no edema. No swelling. NERVOUS SYSTEM: No focal deficits. LABS: WBC 12.2, hemoglobin 7.4, otherwise sodium 130, potassium 3.4. ASSESSMENT: 1. Shortness of breath, multifactorial with acute pulmonary embolism, right-sided, mostly peripheral. 2. Atrial fibrillation with fast ventricular rate. 3. Possible pneumonia and atelectasis. 4. Uterine sarcoma chemotherapy. 5. Increased WBC. 6. Abdominal distention. 7. Anemia, normocytic. 8. Hyponatremia. 9. Hypokalemia. 10.Elevated bilirubin. 11.Mild hypocalcemia. 12.Hypertension. 13.History of hysterectomy. 14.History of port placement. 15.History of bilateral knee replacement history. 16.History of anxiety. 17.Obesity with body mass of 40.1. 18.Hypoalbuminemia with mild protein calorie malnutrition. 19.FULL CODE. RECOMMENDATIONS AND DISCUSSION: Recommend to continue current medications, management and symptomatic treatment. Recommend to continue current management and symptomatic treatment. Otherwise repeat labs. Potassium supplementation. Empiric antibiotics. Continue with apixaban. Recommend Pulmonary and continue with the Atenolol. Guarded prognosis. Further recommendations to follow. MMODL / IJN: [id number] /
[2021-08-11] MEDS: APIXABAN 5 MG TAB PO SCH (20:22)
[2021-08-11] MEDS: buPROPion 75 MG TAB PO SCH (20:22)
[2021-08-12 06:41] LABS: African American GFR (CKD) >90 (>60 ml/min/1.73 sqM); Anion Gap 4 mmol/L; Blood Urea Nitrogen 10 mg/dL (7-17); Calcium 8.2 mg/dL (8.4-10.2); Carbon Dioxide 29 mmol/L (22-30); Chloride 97 mmol/L (98-107); Glucose 98 mg/dL (74-99); Non-African American GFR(CKD) >90 (>60 ml/min/1.73 sqM); Potassium 3.3 mmol/L (3.5-5.1); Sodium 130 mmol/L (137-145)
[2021-08-12 07:23] LABS: Anisocytosis Slight; Basophils % (A) 0 %; Eosinophils % (A) 0 %; HCT 20.2 % (34.0-46.0); Lymphocytes # (A) 0.4 k/uL (1.0-4.8); Lymphocytes % (A) 12 %; MCH 31.3 pg (25.0-35.0); MCHC 34.7 g/dL (31.0-37.0); Mean Platelet Volume 8.8; Monocytes # (A) 0.1 k/uL (0-1.0); Monocytes % (A) 3 %; Neutrophils # (A) 2.5 k/uL (1.3-7.7); Neutrophils % (A) 84 %; Platelet Count 134 k/uL (150-450); RBC 2.24 m/uL (3.80-5.40); RDW 18.8 % (11.5-15.5)
[2021-08-12] MEDS ORDERED: POTASSIUM CHLORIDE ER 20 MEQ TAB.ER PO STA (07:25)
[2021-08-12 07:40] VITALS: RESP 18
[2021-08-12] MEDS: APIXABAN 5 MG TAB PO SCH ×2 (07:41→21:15)
[2021-08-12] MEDS: PANTOPRAZOLE 40 MG TABLET PO SCH ×2 (07:41→21:15)
[2021-08-12] MEDS: FUROSEMIDE 10 MG/ML 2 ML VIAL IV SCH (07:41)
[2021-08-12] MEDS: POTASSIUM CHLORIDE ER 20 MEQ TAB.ER PO SCH (07:41)
[2021-08-12] MEDS: atenoloL 50 MG TAB PO SCH (07:42)
[2021-08-12] MEDS: CHLORTHALIDONE 25 MG TAB PO SCH (08:39)
--- NOTE | 2021-08-12 13:45 | P.PN ---
Subjective Progress Note Date: 08/12/21 Principal diagnosis: Acute pulmonary embolism, provoked by underlying uterine cancer. 71-year-old white female patient with history of uterine sarcoma who had chemotherapy 3 days ago, presented to [facility] in [place], [place], with complaints of weakness. She was found to be hypotensive, and in A. fib with RVR. CT chest was completed showng a pulmonary embolism in the right lung. She was started on heparin infusion, and Cardizem infusion for rate control. She denied any fever or chills earlier in the week, no complaints of cough or phlegm production. Patient was noted to have hypokalemia, and hypomagnesemia and elevated white blood cell count. No urinary complaints. Currently afebrile. She is on room air with a pulse ox of 94-96%. Currently she is in sinus mechanism with PACs. Cardiology consultation has been requested. We were consulted for a newly diagnosed pulmonary embolism On 08/11/2021 patient seen in follow-up on selective care unit, she is currently up in the recliner, breathing comfortably, she is on room air, with a pulse ox of 95%, vitall signs have been stable, she is back in sinus mechanism, the rate is controlled, she remains a Cardizem infusion at 15 mg per hour, she is on heparin infusion, and 0.9 normal saline at a rate of 20 ML per hour, no complaints of chest pain, 7 stable overnight, no fever or chills, pro-calcitonin level was negative at 0.20, urinalysis did not show evidence of infection, 2 sets of cardiac troponins were less than 0.012, patient continues on Rocephin. White blood cell count is improved and is down to 12.6, hemoglobin is 7.4. Sodium is 131, potassium is 3.4, chloride is 97, B1 is 14 creatinine 0.46. No nausea or vomiting, no abdominal pain. Altered mentation, no fever or chills, no cough production. Reevaluated today on 08/12/2021, patient is doing well, asymptomatic, she is presently on room air, 100%. Chest x-ray showed no evidence of pneumonia or infiltrate. No evidence of congestive heart failure. Hence I'm recommending that the patient could be considered for discharge home is cleared by other consultants, and she could go home on anticoagulations therapy orally. Objective - Vital Signs Vital signs: Vital Signs Temp 98.1 F 08/12/21 11:26 Pulse 89 08/12/21 11:26 Resp 18 08/12/21 11:26 BP 103/53 08/12/21 11:26 Pulse Ox 100 08/12/21 11:26 Intake & Output 08/11/21 08/12/21 08/12/21 18:59 06:59 18:59 Intake Total 240 240 Output Total 200 Balance 240 40 Weight 99.7 kg 105 kg Intake: Oral 240 240 Output: Urine 200 Other: # Voids 2 - Exam GENERAL EXAM: Revealed a 71-year-old female in no distress. HEAD: Normocephalic/atraumatic. EENT: PERRLA, EOMI, anicteric, no neck masses, no JVD, no stridor. CHEST: No chest wall deformity. Symmetrical expansion. LUNGS: Equal air entry with no crackles, wheeze, rhonchi or dullness. CVS: Regular rate and rhythm, normal S1 and S2, no gallops, no murmurs, no rubs ABDOMEN: Soft, distended but nontender No hepatosplenomegaly, normal bowel sounds, no guarding or rigidity. EXTREMITIES: No clubbing, no edema, no cyanosis, 2+ pulses and upper and lower e xtremities. SKIN: No rashes CENTRAL NERVOUS SYSTEM: Alert and oriented -3. No gross focal deficits. PSYCHIATRIC: Normal mood affect and normal mental status examination. - Labs CBC & Chem 7: 08/12/21 05:16 08/12/21 05:16 Labs: Abnormal Lab Results - Last 24 Hours (Table) 08/11/21 08/12/21 08/12/21 Range/Units 08:54 05:16 05:16 WBC 3.0 L (3.8-10.6) k/uL RBC 2.24 L (3.80-5.40) m/uL Hgb 7.0 L (11.4-16.0) gm/dL Hct 20.2 L (34.0-46.0) % RDW 18.8 H (11.5-15.5) % Plt Count 134 L (150-450) k/uL Lymphocytes # 0.4 L (1.0-4.8) k/uL Sodium 130 L (137-145) mmol/L Potassium 3.3 L (3.5-5.1) mmol/L Chloride 97 L (98-107) mmol/L Creatinine 0.50 L (0.52-1.04) mg/dL Calcium 8.2 L (8.4-10.2) mg/dL Procalcitonin 0.18 H (0.02-0.09) ng/mL Microbiology - Last 24 Hours (Table) 08/11/21 09:14 Urine Culture - Final Urine,Clean Catch 08/10/21 16:45 Blood Culture - Preliminary Blood No Growth after 24 hours 08/10/21 16:48 Blood Culture - Preliminary Blood No Growth after 24 hours Assessment and Plan Assessment: #1. New onset A. fib with RVR, likely related to acute pulmonary embolism. Currently in sinus mechanism. #2. Hypotension likely related to A. fib with RVR, currently improved #3. Acute small peripheral right lower lobe pulmonary embolism without findings for right heart strain, patient is currently on oral anticoagulant therapy. #4. 7 mm nodule in the posterior right lower lobe, possibly metastatic. Will need outpatient follow-up #5. Uterine cancer, on chemotherapy, and patient is awaiting surgical removal once the tumor shrinks. Patient was diagnosed in July 2020 #6. No prior history of DVT or PE #7. Leukocytosis, rule out possibility of infection #8. Hypokalemia, and hypomagnesemia, resolved posttreatment. #9. Osteoarthritis #10. Obesity with BMI of 39.5 kg/m #11. Hypertension #12. Anxiety #13. Never smoker recommendation: Continue Eliquis. Continue home meds. Cleared from my perspective for discharge planning today. We'll follow the patient on when necessary basis. Must follow up with her oncologist, post discharge Time with Patient: Less than 30
--- NOTE | 2021-08-12 14:06 | P.PN ---
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 She received chemotherapy on Friday and then was told she had severe anemia requiring transfusion on Friday. Unfortunately over the last 2-3 days she has been noticing feeling generalized fatigue, dyspnea on exertion and therefore presented to [facility]. She was diagnosed with a new pulmonary embolism as well as new onset atrial fibrillation. She cannot feel her heart racing and was placed on a Cardizem drip and then converted to normal sinus rhythm. She denies any hematochezia or melena and her anemia appears related to chemotherapy. She was found to have increased white blood cell count and unclear if she was given any GSF after chemotherapy. She believes it has been a few years since any echocardiogram was performed. She does have new onset of lower extremity edema with 2+ pitting edema as well as orthopnea which is new or the past 1-2 weeks. She is unsure what chemotherapy she is getting. EKG on presentation shows normal sinus rhythm, left axis deviation, mild nonspecific ST depressions in the lateral leads. Upon further review of initial EKG from [facility] it appears she had SVT with regular rhythm at 174 bpm and occasional R PAC. The remainder of telemetry and continue to show a regular SVT with heart rates 170-180 with occasional PACs. No consistent atrial fibrillation or irregular rhythms noted. 08/12 Patient seen and examined. Patient denies any chest pain or pressure. She admits to continued generalized fatigue. She did receive IV Lasix however no dramatic change in her lower extremity edema. BNP was only elevated at 300. Echocardiogram shows preserved ejection fraction and relatively normal diastolic parameters with the EGD of 13. Suspect the majority of lower extremity edema likely related to venous insufficiency and discussed keeping her legs elevated. Her hemoglobin has decreased to 7.0. No arrhythmias noted on telemetry. PHYSICAL EXAMINATION Vital signs reviewed. CONSTITUTIONAL: No apparent distress, obese, chronically ill appearing HEENT: Head is normocephalic. Pupils are equal, round. Sclerae anicteric. Mucous membranes of the mouth are moist. No JVD. No carotid bruit. CHEST EXAMINATION: Lungs are clear to auscultation. No chest wall tenderness is noted on palpation or with deep breathing. HEART EXAMINATION: Regular rate and rhythm. S1, S2 heard. No murmurs, gallops or rub. ABDOMEN: Soft, nontender. Positive bowel sounds. EXTREMITIES: 2+ peripheral pulses, 2+ lower extremity edema and no calf tenderness. NEUROLOGIC EXAMINATION: Patient is awake, alert and oriented x3. ASSESSMENT 1. Dyspnea, initial concern of heart failure with preserved ejection fraction however echo shows relatively normal diastolic parameters as well as normal systolic function and proBNP only mildly elevated. Likely more related to anemia, recent chemotherapy 2. SVT on presentation, reviewed EKG and telemetry from [facility]. No obvious atrial fibrillation noted. Rhythms appear regular and most consistent with SVT with heart rates of 170 to 180. 3. Anemia status post recent blood transfusion likely related to chemotherapy 4. Leukocytosis likely related to GSF given after chemo 5. Pulmonary embolism by CAT scan 6. Uterine cancer undergoing chemotherapy, plans for future resection 7. Hypertension PLAN Her BNP only mildly elevated and echo with normal systolic function and normal diastolic function. Stop Lasix and continue with home chlorthalidone. Patient appears euvolemic and lower extremity edema likely related to venous ins ufficiency. 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 Continue anticoagulation however for pulmonary embolism. Continue supportive care. Monitor hemoglobin closely. Objective - Vital Signs Vital signs: Vital Signs Temp 98.1 F 08/12/21 11:26 Pulse 89 08/12/21 13:50 Resp 18 08/12/21 13:50 BP 103/53 08/12/21 11:26 Pulse Ox 100 08/12/21 11:26 Intake & Output 08/11/21 08/12/21 08/12/21 18:59 06:59 18:59 Intake Total 240 240 Output Total 200 Balance 240 40 Weight 99.7 kg 105 kg Intake: Oral 240 240 Output: Urine 200 Other: # Voids 2 - Labs CBC & Chem 7: 08/12/21 05:16 08/12/21 05:16 Labs: Abnormal Lab Results - Last 24 Hours (Table) 08/11/21 08/12/21 08/12/21 Range/Units 08:54 05:16 05:16 WBC 3.0 L (3.8-10.6) k/uL RBC 2.24 L (3.80-5.40) m/uL Hgb 7.0 L (11.4-16.0) gm/dL Hct 20.2 L (34.0-46.0) % RDW 18.8 H (11.5-15.5) % Plt Count 134 L (150-450) k/uL Lymphocytes # 0.4 L (1.0-4.8) k/uL Sodium 130 L (137-145) mmol/L Potassium 3.3 L (3.5-5.1) mmol/L Chloride 97 L (98-107) mmol/L Creatinine 0.50 L (0.52-1.04) mg/dL Calcium 8.2 L (8.4-10.2) mg/dL Procalcitonin 0.18 H (0.02-0.09) ng/mL Microbiology - Last 24 Hours (Table) 08/11/21 09:14 Urine Culture - Final Urine,Clean Catch 08/10/21 16:45 Blood Culture - Preliminary Blood No Growth after 24 hours 08/10/21 16:48 Blood Culture - Preliminary Blood No Growth after 24 hours
[2021-08-12] MEDS: LORazepam 2 MG/ML INJ IV PRN (15:35)
--- NOTE | 2021-08-12 18:14 | ECHOF ---
Referral Reason:re: CHF MEASUREMENTS -------- HEIGHT: 157.5 cm WEIGHT: 99.3 kg BP: 103/64 RVIDd: 3.7 cm (< 3.3) IVSd: 0.9 cm (0.6 - 1.1) LVIDd: 5.8 cm (3.9 - 5.3) LVPWd: 1.0 cm (0.6 - 1.1) IVSs: 1.3 cm LVIDs: 3.8 cm LVPWs: 1.8 cm LA Diam: 4.2 cm (2.7 - 3.8) LAESV Index (A-L): 33.15 ml/m Ao Diam: 3.0 cm (2.0 - 3.7) AV Cusp: 2.5 cm (1.5 - 2.6) MV EXCURSION: 21.258 mm (> 18.000) MV EF SLOPE: 102 mm/s (70 - 150) EPSS: 1.0 cm MV E Ezequiel: 1.14 m/s MV DecT: 201 ms MV A Ezequiel: 0.92 m/s MV E/A Ratio: 1.24 RAP: 15.00 mmHg RVSP: 52.43 mmHg FINDINGS -------- Sinus rhythm. This was a technically good study. The left ventricle is mildly dilated. Left ventricular wall thickness is normal. Overall left catalina tricular systolic function is normal with, an EF between 55 - 60 %. The right ventricle is mildly enlarged. LA is midly dilated 29-33ml/m2. The right atrium is normal in size. Interatrial and interventricular septum intact. The aortic valve is trileaflet, and appears structurally normal. No aortic stenosis or regurgitation. [id number] mitral regurgitation is present. Moderate tricuspid regurgitation present. There is moderate pulmonary hypertension. The right catalina tricular systolic pressure, as measured by Doppler, is 52.43mmHg. Trace/mild (physiologic) pulmonic regurgitation. The aortic root size is normal. Normal inferior vena cava with less than 50% inspiratory collapse consistent with estimated right atr ial pressure of 15 mmHg. There is no pericardial effusion. CONCLUSIONS -------- 1. The left ventricle is mildly dilated. 2. Left ventricular wall thickness is normal. 3. Overall left ventricular systolic function is normal with, an EF between 55 - 60 %. 4. The right ventricle is mildly enlarged. 5. LA is midly dilated 29-33ml/m2. 6. The aortic valve is trileaflet, and appears structurally normal. No aortic stenosis or regurgitati on. 7. Mwwc-fv-qhbsmqvh mitral regurgitation is present. 8. Moderate tricuspid regurgitation present. 9. There is moderate pulmonary hypertension. 10. The right ventricular systolic pressure, as measured by Doppler, is 52.43mmHg. 11. Trace/mild (physiologic) pulmonic regurgitation. 12. Normal inferior vena cava with less than 50% inspiratory collapse consistent with estimated right atrial pressure of 15 mmHg. 13. There is no pericardial effusion. TECHNICAL TRAINING COORDINATOR: Ginette Pereira RDCS
--- NOTE | 2021-08-12 19:50 | PN ---
PROGRESS NOTE DATE OF SERVICE: 08/12/2021. This 71-year-old woman who was admitted with shortness of breath which is multifactorial also had a pulmonary embolism right-sided and as well as mostly peripheral. No chest pain. No palpitations. No fever. PHYSICAL EXAMINATION: Alert and oriented times three. Pulse 57, blood pressure 120/70, respiration 18, temperature 98 degrees, pulse 100 percent on room air. HEENT: Conjunctivae normal. NECK: No JVD. CARDIOVASCULAR: S1, S2 muffled. RESPIRATORY SYSTEM: Breath sounds diminished at the bases. ABDOMEN: Soft. NERVOUS SYSTEM: No focal deficits. LABS: Hemoglobin 7, white count 3, sodium 130, potassium 3.3. ASSESSMENT: 1. Shortness of breath multifactorial with acute pulmonary embolism, right-sided, mostly peripheral. 2. Atrial fibrillation with fast ventricular rate. 3. Possible pneumonia and atelectasis. 4. Uterine sarcoma, chemotherapy. 5. Anemia possibly multifactorial including GI bleed and as well as chemotherapy. 6. Increased WBC. 7. Abdominal distention. 8. Hyponatremia. 9. Hypokalemia. 10.Elevated bilirubin. 11.Mild hypocalcemia. 12.Hypertension. 13.History of hysterectomy. 14.History of port placement. 15.History of bilateral knee replacement history. 16.History of anxiety. 17.Obesity with body mass index of 40.1. 18.Hypoalbuminemia with mild protein calorie malnutrition. 19.FULL CODE. RECOMMENDATIONS AND DISCUSSION: I recommend to continue current medications. Symptomatic treatment. Continue with Eliquis. 1 unit transfusion. Otherwise, closely follow with multiple consultants. Prognosis guarded. Further recommendations to follow. MMODL / IJN: [id number] /
[2021-08-12] MEDS: buPROPion 75 MG TAB PO SCH (21:15)
[2021-08-12] MEDS: HYDROcodone/APAP 5-325MG 1 EACH TAB PO PRN (21:15)
[2021-08-12] MEDS ORDERED: LORazepam 0.5 MG TAB PO PRN (22:02)
[2021-08-13 08:23] LABS: Anisocytosis Slight; HCT 21.6 % (34.0-46.0); HGB 7.5 gm/dL (11.4-16.0); MCH 31.1 pg (25.0-35.0); MCV 89.1 fL (80.0-100.0); Mean Platelet Volume 8.1; Platelet Count 103 k/uL (150-450); RBC 2.42 m/uL (3.80-5.40); RDW 18.8 % (11.5-15.5)
[2021-08-13 08:32] LABS: African American GFR (CKD) >90 (>60 ml/min/1.73 sqM); Anion Gap 6 mmol/L; Blood Urea Nitrogen 7 mg/dL (7-17); Calcium 8.8 mg/dL (8.4-10.2); Carbon Dioxide 28 mmol/L (22-30); Chloride 96 mmol/L (98-107); Glucose 89 mg/dL (74-99); Non-African American GFR(CKD) >90 (>60 ml/min/1.73 sqM); Potassium 3.8 mmol/L (3.5-5.1); Sodium 130 mmol/L (137-145)
[2021-08-13 08:52] LABS: WBC 1.1 k/uL (3.8-10.6)
[2021-08-13 09:20] LABS: Band Neutrophils % 1 %; Lymphocytes # (M) 0.52 k/uL (1.0-4.8); Monocytes # (M) 0.07 k/uL (0-1.0); Neutrophils % (M) 46 %; Nucleated Red Blood Cells 0 /100 WBC (0-0); Total Cells Counted 100
[2021-08-13 09:23] LABS: Anisocytosis (M) Present; Poikilocytosis (M) Present
[2021-08-13] MEDS: atenoloL 50 MG TAB PO SCH (09:28)
[2021-08-13] MEDS: PANTOPRAZOLE 40 MG TABLET PO SCH (09:28)
[2021-08-13] MEDS: POTASSIUM CHLORIDE ER 20 MEQ TAB.ER PO SCH (09:28)
[2021-08-13] MEDS: CHLORTHALIDONE 25 MG TAB PO SCH (09:30)
--- NOTE | 2021-08-13 11:20 | P.PN ---
Subjective Progress Note Date: 08/13/21 Principal diagnosis: Shortness of breath This is a 71-year-old female patient was admitted to the hospital with dyspnea and concern regarding heart failure. The patient was found to be anemic. Also she was diagnosed with SVT. The patient was seen this morning. She stated that she is feeling better. The shortness of breath has improved significantly and she denies any symptoms of chest or chest discomfort or dizziness or lightheadedness. The hemoglobin is low but stable. Her WBC is very low. She has been maintaining normal sinus mechanism. The echo showed normal left ventricular systolic function without significant valvular abnormalities. Objective - Vital Signs Vital signs: Vital Signs Temp 98.6 F 08/13/21 09:25 Pulse 94 08/13/21 09:25 Resp 18 08/13/21 09:25 BP 111/73 08/13/21 09:25 Pulse Ox 97 08/13/21 09:25 Intake & Output 08/12/21 08/13/21 08/13/21 18:59 06:59 18:59 Intake Total 480 480 120 Output Total 200 250 Balance 280 230 120 Weight 104.3 kg Intake: Oral 480 480 120 Output: Urine 200 250 Other: # Voids 2 - Constitutional General appearance: Present: no acute distress - Respiratory Respiratory: bilateral: diminished - Cardiovascular Rhythm: regular Heart sounds: normal: S1, S2 - Labs CBC & Chem 7: 08/13/21 07:28 08/13/21 07:28 Labs: Abnormal Lab Results - Last 24 Hours (Table) 08/12/21 08/13/21 08/13/21 Range/Units 18:39 07:28 07:28 WBC 1.1 L* (3.8-10.6) k/uL RBC 2.42 L (3.80-5.40) m/uL Hgb 7.5 L (11.4-16.0) gm/dL Hct 21.6 L (34.0-46.0) % RDW 18.8 H (11.5-15.5) % Plt Count 103 L (150-450) k/uL Neutrophils # (Manual) 0.50 L (1.3-7.7) k/uL Lymphocytes # (Manual) 0.52 L (1.0-4.8) k/uL Sodium 130 L (137-145) mmol/L Chloride 96 L (98-107) mmol/L Crossmatch See Detail Microbiology - Last 24 Hours (Table) 08/10/21 16:45 Blood Culture - Preliminary Blood No Growth after 48 hours 08/10/21 16:48 Blood Culture - Preliminary Blood No Growth after 48 hours 08/11/21 09:14 Urine Culture - Final Urine,Clean Catch Assessment and Plan Assessment: Assessment #1 dyspnea on exertion which has improved #2 supraventricular tachycardia. Currently the patient is in normal sinus mechanism #3 anemia #4 history of pulmonary embolism Plan #1 continue the current medical regimen #2 pancytopenia could be related to chemotherapy #3 the patient potentially can be discharged in the next 12-24 hours
[2021-08-13] MEDS: APIXABAN 5 MG TAB PO SCH (11:27)
[2021-08-13 11:36] VITALS: BP 111/69; PULSE 80; TEMP 98.2
--- NOTE | 2021-08-13 12:04 | US ---
EXAMINATION TYPE: US venous doppler duplex LE DATE OF EXAM: 08/13/2021 11:48 AM COMPARISON: NONE CLINICAL HISTORY: 71-year-old female recently diagnosed PE. Swelling. Patient is on heparin. Hx alissa johnson total knee replacement 2014. SIDE PERFORMED: Bilateral TECHNIQUE: The lower extremity deep venous system is examined utilizing real time linear array sonog yrn with graded compression, doppler sonography and color-flow sonography. FINDINGS: VESSELS IMAGED: Common Femoral Vein Deep Femoral Vein Greater Saphenous Vein * Femoral Vein Popliteal Vein Small Saphenous Vein * Proximal Calf Veins (* superficial vessels) Right Leg: CFV appears to compress incompletely-possible minimal non-occlusive internal echoes along wall. Color flow seen in all veins imaged. Left Leg: No evidence of DVT in veins imaged at this time. IMPRESSION: 1. Right: Incomplete compressibility of the CFV. There may be some minimal nonocclusive clot here. No occlusive, acute DVT seen. 2. No evidence for DVT within the left lower extremity imaged from the groin to the upper calf.
--- NOTE | 2021-08-13 13:52 | P.PN ---
Subjective Progress Note Date: 08/13/21 Principal diagnosis: PE, uterine sarcoma with recent chemo In f/u today pt stated she is no longer feeling like she has palpitations, no chest discomfort, SOB is resolved. She is able to ambulate without ANNETTE, chest pain Objective - Vital Signs Vital signs: Vital Signs Temp 98.6 F 08/13/21 09:25 Pulse 94 08/13/21 09:25 Resp 18 08/13/21 09:25 BP 111/73 08/13/21 09:25 Pulse Ox 97 08/13/21 09:25 Intake & Output 08/12/21 08/13/21 08/13/21 18:59 06:59 18:59 Intake Total 480 480 120 Output Total 200 250 Balance 280 230 120 Weight 104.3 kg Intake: Oral 480 480 120 Output: Urine 200 250 Other: # Voids 2 - Constitutional General appearance: Present: cooperative, no acute distress, obese - EENT Eyes: Present: anicteric sclerae, EOMI ENT: Present: hearing grossly normal - Neck Neck: Absent: lymphadenopathy - Respiratory Respiratory: bilateral: CTA - Cardiovascular Rhythm: regular Heart sounds: normal: S1, S2 Abnormal Heart Sounds: Absent: systolic murmur, diastolic murmur, rub, S3 Gallop, S4 Gallop, click, other - Peripheral edema leg Peripheral Edema: bilateral: Trace - Gastrointestinal General gastrointestinal: Present: decreased bowel sounds, distended, soft. Absent: absent bowel sounds, hepatomegaly, hyperactive bowel sounds, normal bowel sounds, organomegaly, rigid, scaphoid, splenomegaly, tenderness, umbilical hernia, ventral hernia - Integumentary Integumentary: Present: pale - Neurologic Neurologic: Present: CNII-XII intact - Musculoskeletal Musculoskeletal: Present: strength equal bilaterally - Psychiatric Psychiatric: Present: A&O x's 3, appropriate affect, intact judgment & insight - Labs CBC & Chem 7: 08/13/21 07:28 08/13/21 07:28 Labs: Abnormal Lab Results - Last 24 Hours (Table) 08/12/21 08/13/21 08/13/21 Range/Units 18:39 07:28 07:28 WBC 1.1 L* (3.8-10.6) k/uL RBC 2.42 L (3.80-5.40) m/uL Hgb 7.5 L (11.4-16.0) gm/dL Hct 21.6 L (34.0-46.0) % RDW 18.8 H (11.5-15.5) % Plt Count 103 L (150-450) k/uL Neutrophils # (Manual) 0.50 L (1.3-7.7) k/uL Lymphocytes # (Manual) 0.52 L (1.0-4.8) k/uL Sodium 130 L (137-145) mmol/L Chloride 96 L (98-107) mmol/L Crossmatch See Detail Microbiology - Last 24 Hours (Table) 08/10/21 16:45 Blood Culture - Preliminary Blood No Growth after 48 hours 08/10/21 16:48 Blood Culture - Preliminary Blood No Growth after 48 hours 08/11/21 09:14 Urine Culture - Final Urine,Clean Catch - Imaging and Cardiology Venous US: report reviewed Assessment and Plan (1) Pulmonary embolism Narrative/Plan: Doppler of BLE for baseline-report reviewed, RLE possible non-occlusive DVT. Pt is on eliquis loading dose. Reviewed case with Attending PRECISION AGRICULTURE SPECIALIST. Current Visit: Yes Status: Acute Priority: High Code(s): I26.99 - OTHER PULMONARY EMBOLISM WITHOUT ACUTE COR PULMONALE SNOMED Code(s): 65824421 (2) Pancytopenia due to antineoplastic chemotherapy Narrative/Plan: Per pt she received GCSF. Her WBC was 40 from documents reviewed from transferring hospital. No other intervention at this time. Hgb 7.5, pt sttes she has required transfusions previously. No transfusion needed today. Plt not normal but safe at 103,000 Keep f/u plans with Primary Onc-due to be seen in 3 days Current Visit: Yes Status: Acute Priority: High Code(s): D61.810 - ANTINEOPLASTIC CHEMOTHERAPY INDUCED PANCYTOPENIA; T45.1X5A - ADVERSE EFFECT OF ANTINEOPLASTIC AND IMMUNOSUP DRUGS, INIT SNOMED Code(s): 428839572939449 (3) Uterine sarcoma Narrative/Plan: Due for Onc f/u, may be a surgical candidate. SHe will f/u as scheduled Current Visit: Yes Status: Acute Priority: High Code(s): C54.9 - MALIGNANT NEOPLASM OF CORPUS UTERI, UNSPECIFIED SNOMED Code(s): 283901657
[2021-08-13 14:46] VITALS: BMI 42.0
--- NOTE | 2021-08-13 21:28 | DS ---
DISCHARGE SUMMARY DATE OF SERVICE: 08/13/2021 FINAL DIAGNOSES: 1. Shortness of breath, multifactorial, possibly acute pulmonary embolism, right- sided, mostly peripheral and as well as atrial fibrillation ablation fast ventricular rate present on admission. 2. Possible pneumonia and atelectasis. 3. Uterine sarcoma on chemotherapy. 4. Anemia possibly multifactorial including GI bleed and as well as chemotherapy. 5. Increased WBC. 6. Abdominal distention. 7. Hyponatremia. 8. Hypokalemia. 9. Elevated bilirubin. 10.Mild hypercalcemia. 11.Hypertension. 12.Hysterectomy. 13.History of port placement. 14.History of bilateral knee joint replacement history. 15.History of anxiety. 16.Obesity with body mass index of 40.1. 17.Hypoalbuminemia with mild protein calorie malnutrition. 18.FULL CODE. DISCHARGE DISPOSITION: The patient being discharged in stable condition with guarded prognosis. HISTORY OF PRESENT ILLNESS: This 71-year-old woman with past medical history of multiple medical problems was admitted with shortness of breath and multiple other medical problems as mentioned. The patient was treated with anticoagulants. Patient was seen by Cardiology and Pulmonology. The patient stabilized. On exam, vitals stable. Cardiovascular S1, S2. Abdomen soft. Nervous system: No focal deficits. White count is 1.1, hemoglobin 7.5, sodium 130. DISCHARGE ADVICE/MEDICATIONS: 1. Diet is cardiac diet. 2. Activity limited until followup. 3. Follow up with primary physician in 2-3 days. 4. Follow up with Cardiology, pulmonology as recommended. 5. Atenolol chlorthalidone 1 tab p.o. daily. 6. Compazine p.r.n. 7. KCl 20 mEq p.o. daily. 8. Wellbutrin 75 mg q.h.s. 9. Zofran 8 mg q.8 p.r.n. 10.Ativan 0.5 mg q.h.s. 11.Ceftin 500 mg p.o. b.i.d. for 3 days. 12.Eliquis 10 mg p.o. b.i.d. for 1 month and then 5 mg p.o. b.i.d. 13.[place] 5 mg q.6 p.r.n. 14.Protonix 40 mg p.o. b.i.d. 15.Tylenol p.r.n. 16.Follow up labs with the primary physician, CBC, BMP. MMODL / IJN: [id number] /
[2021-08-19] MEDS ORDERED: APIXABAN 5 MG TAB PO SCH (09:00)
== END 2021-08-13 15:12 | disposition home or self-care (01) | DRG 175 ==
LOC: EC 12:11 → 3SCARD 13:31
PROVIDERS: ADMIT Internal Medicine; ATTEND Internal Medicine
DX: I26.99 Other pulmonary embolism without acute cor pulmonale (principal); D61.810 Antineoplastic chemotherapy induced pancytopenia; J18.9 Pneumonia, unspecified organism; I47.1 Supraventricular tachycardia; R17 Unspecified jaundice; J98.11 Atelectasis; E44.1 Mild protein-calorie malnutrition; E87.1 Hypo-osmolality and hyponatremia; Z68.41 Body mass index [BMI] 40.0-44.9, adult; I48.91 Unspecified atrial fibrillation; I50.9 Heart failure, unspecified; I11.0 Hypertensive heart disease with heart failure; M19.90 Unspecified osteoarthritis, unspecified site; T45.1X5A Adverse effect of antineoplastic and immunosuppressive drugs, initial encounter; C55 Malignant neoplasm of uterus, part unspecified; D72.829 Elevated white blood cell count, unspecified; E66.9 Obesity, unspecified; E83.42 Hypomagnesemia; E87.6 Hypokalemia; E83.51 Hypocalcemia; F41.9 Anxiety disorder, unspecified; Z79.01 Long term (current) use of anticoagulants; Z80.0 Family history of malignant neoplasm of digestive organs; Z80.3 Family history of malignant neoplasm of breast; Z86.711 Personal history of pulmonary embolism; Z90.710 Acquired absence of both cervix and uterus; Z96.653 Presence of artificial knee joint, bilateral; R14.0 Abdominal distension (gaseous)
CPT/HCPCS: 71045; 80048; 80053; 81001; 83735; 83880; 84145; 84484; 85025; 85379; 85610; 85652; 85730; 86140; 86850; 86900; 86901; 86920; 87040; 87086; 93005; 93306; 93970; 96365; 96366; 96368; 96375; 99285